=== PATIENT | female | born 1985 | race Caucasian/White ===

== ENCOUNTER → 2019-05-14 | Outpatient (CLI) | payer BC ==
[~2019-05-14] MED LIST: CEFDINIR300 MG PO; ROXICET 325 MG PO; TOBRADEX 0.1%-0.5 ML OPH; ZITHROMAX Z PA250 MG PO
[2019-05-14 10:09] LABS: HEMATOCRIT 38.9 % (37.0-47.0); HEMOGLOBIN 12.6 g/dl (12.0-16.0); MEAN CORPUSCULAR HGB 28.2 pg (27.0-31.0); MEAN CORPUSCULAR HGB CONC 32.4 g/dl (33.0-37.0); MEAN PLATELET VOLUME 9.7 fl (9.6-12.3); RED BLOOD COUNT 4.47 10*6/uL (4.10-5.10); RED CELL DISTRI WIDTH 12.3 % (0-14.5); WHITE BLOOD COUNT 8.8 10*3/uL (4.8-10.8)
[2019-05-14 10:25] LABS: ALBUMIN 3.7 gm/dl (3.1-4.5); CHLORIDE 104 mmol/L (98-107); POTASSIUM 3.7 mmol/L (3.5-5.1); SODIUM 136 mmol/L (136-145)
[2019-05-14 10:39] LABS: ALKALINE PHOSPHATASE 49 U/L (45-117); BUN 13 mg/dl (7-24); CHOLESTEROL 137 mg/dL (<200); CREATININE 0.67 mg/dL (0.55-1.02); HDL CHOLESTEROL 42 mg/dl (40-60); LDL CHOLESTEROL 86 mg/dL (9-159); SGOT/AST 10 IU/L (3-35); SGPT/ALT 20 U/L (12-78); TOTAL PROTEIN 7.5 gm/dL (6.4-8.2); TRIGLYCERIDES 43 mg/dl (<150); VLDL CHOLESTEROL 9 mg/dL (6-40)
[2019-05-16 22:04] LABS: TESTOSTERONE FREE, (DIRECT) 1.2 pg/mL (0.0-4.2)
== END | disposition home or self-care (01) ==
LOC: LAB 09:46
PROVIDERS: Family Medicine
DX: E55.9 Vitamin D deficiency, unspecified (principal); E78.00 Pure hypercholesterolemia, unspecified; R53.83 Other fatigue; R00.1 Bradycardia, unspecified; L98.8 Other specified disorders of the skin and subcutaneous tissue

== ENCOUNTER → 2019-05-30 | Outpatient (CLI) | payer BC ==
--- NOTE | ~2019-05-30 | HM ---
[place], [place] HOLTER MONITOR REPORT NAME: CHRIS ROSS UNIT #: [id number] ROOM: DOCTOR: MARY DOWD MD BIRTHDATE: [birth year] DOS: HOLTER REPORT: A 24-hour Holter. The patient remained in sinus rhythm. Minimum heart rate is 34, maximum heart rate 77, average is 47 beats per minute. Several episodes of sinus bradycardia. The slowest heart rate is 34 beats per minute. The patient had multiple episodes of premature atrial contractions present. Total of 1378 which is 2.1%. No evidence of ventricular ectopies. No significant pauses. Longest pause is 2 seconds. No symptoms noticed in the diary. FINAL IMPRESSION: Sinus rhythm with a few episodes of sinus bradycardia, frequent premature atrial contractions. No significant pauses. No significant ventricular dysrhythmia. No supraventricular dysrhythmia other than frequent PACs. MARY DOWD MD CM:HOLTER:HOLTER MONITOR REPORT [id number] MARY DOWD MD
== END | disposition home or self-care (01) ==
LOC: CARD 07:47
DX: R00.1 Bradycardia, unspecified (principal)

== ENCOUNTER → 2019-07-02 | Outpatient (CLI) | payer BC | END | disposition home or self-care (01) | LOC: US 01:43 | DX: Z34.81 Encounter for supervision of other normal pregnancy, first trimester (principal); Z3A.14 14 weeks gestation of pregnancy ==

== ENCOUNTER → 2019-08-13 | Outpatient (CLI) | payer BC | END | disposition home or self-care (01) | LOC: US 15:49 | DX: Z34.82 Encounter for supervision of other normal pregnancy, second trimester (principal); Z3A.20 20 weeks gestation of pregnancy ==

== ENCOUNTER → 2020-10-09 | Outpatient (CLI) | payer BC ==
[2020-10-09 07:48] LABS: HEMATOCRIT 38.7 % (37.0-47.0); MEAN CELL VOLUME 86.6 fl (81.0-99.0); MEAN CORPUSCULAR HGB 28.4 pg (27.0-31.0); MEAN CORPUSCULAR HGB CONC 32.8 g/dl (33.0-37.0); MEAN PLATELET VOLUME 9.5 fl (9.6-12.3); RED BLOOD COUNT 4.47 10*6/uL (4.10-5.10); RED CELL DISTRI WIDTH 11.7 % (0-14.5); WHITE BLOOD COUNT 8.4 10*3/uL (4.8-10.8)
[2020-10-09 08:26] LABS: ALBUMIN 3.3 gm/dl (3.1-4.5); BUN 15 mg/dl (7-24); CHLORIDE 109 mmol/L (98-107); CHOLESTEROL 182 mg/dL (<200); POTASSIUM 3.9 mmol/L (3.5-5.1); SODIUM 141 mmol/L (136-145)
[2020-10-09 08:28] LABS: VITAMIN D, 25-HYDROXY 25.6 ng/mL (30-100)
[2020-10-09 08:36] LABS: ALKALINE PHOSPHATASE 55 U/L (45-117); CREATININE 0.82 mg/dL (0.55-1.02); FREE T4 0.93 ng/dl (0.76-1.46); HDL CHOLESTEROL 49 mg/dl (40-60); LDL CHOLESTEROL 108 mg/dL (9-159); SGOT/AST 6 IU/L (3-35); SGPT/ALT 15 U/L (12-78); TOTAL PROTEIN 7.5 gm/dL (6.4-8.2); TRIGLYCERIDES 125 mg/dl (<150); VLDL CHOLESTEROL 25 mg/dL (6-40)
== END | disposition home or self-care (01) ==
LOC: LAB 07:24
PROVIDERS: ATTEND Family Medicine
DX: E78.00 Pure hypercholesterolemia, unspecified (principal); R53.83 Other fatigue; E55.9 Vitamin D deficiency, unspecified; R63.5 Abnormal weight gain

== ENCOUNTER → 2021-11-19 | Outpatient (CLI) | payer BC | END | disposition home or self-care (01) | LOC: RAD 06:39 | PROVIDERS: ATTEND Nurse Practitioner Family | DX: R00.1 Bradycardia, unspecified (principal); M41.84 Other forms of scoliosis, thoracic region; Z82.49 Family history of ischemic heart disease and other diseases of the circulatory system ==

== ENCOUNTER → 2021-12-30 | Outpatient (CLI) | payer BC | END | disposition home or self-care (01) | LOC: CARD 07:30 | PROVIDERS: ATTEND Nurse Practitioner Family | DX: I08.2 Rheumatic disorders of both aortic and tricuspid valves (principal); Z82.49 Family history of ischemic heart disease and other diseases of the circulatory system ==

== ENCOUNTER → 2023-06-07 | Outpatient (CLI) | payer BC | END | disposition home or self-care (01) | LOC: LAB 15:07 | PROVIDERS: ATTEND Nurse Practitioner Family | DX: J18.9 Pneumonia, unspecified organism (principal); R05.8 Other specified cough ==

== ENCOUNTER → 2023-06-18 | Outpatient (CLI) | payer BC ==
[2023-06-18 07:38] LABS: BASO # 0.1 10*3/uL (0.0-0.1); BASO % 0.5 % (0.0-1.0); EOS # 0.2 10*3/uL (0.0-0.4); EOS % 2.4 % (1.0-4.0); LYMPH # 4.5 10*3/uL (1.3-4.4); LYMPH % 44.3 % (27.0-41.0); MEAN CELL VOLUME 88.2 fl (81.0-99.0); MEAN CORPUSCULAR HGB 27.5 pg (27.0-31.0); MEAN CORPUSCULAR HGB CONC 31.2 g/dl (33.0-37.0); MEAN PLATELET VOLUME 9.2 fl (9.6-12.3); MONO # 0.7 10*3/uL (0.1-1.0); MONO % 6.9 % (3.0-9.0); NEUT # 4.6 10*3/uL (2.3-7.9); NEUT % 45.6 % (47.0-73.0); PLATELET COUNT AUTOMATED 316 10*3/uL (130-400); RED BLOOD COUNT 4.65 10*6/uL (4.10-5.10); RED CELL DISTRI WIDTH 12.9 % (0-14.5); WHITE BLOOD COUNT 10.1 10*3/uL (4.8-10.8)
[2023-06-18 07:59] LABS: ALKALINE PHOSPHATASE 58 U/L (46-116); BUN 11 mg/dl (9-23); CHLORIDE 106 mmol/L (98-107); CHOLESTEROL 179 mg/dL (<200); LDL CHOLESTEROL 111 mg/dL (9-159); POTASSIUM 4.1 mmol/L (3.4-5.1); SGPT/ALT 20 U/L (5-49); TOTAL PROTEIN 6.7 gm/dL (6.0-8.0); TRIGLYCERIDES 113 mg/dl (<150)
== END | disposition home or self-care (01) ==
LOC: LAB 07:14
PROVIDERS: ATTEND Nurse Practitioner Family
DX: Z13.220 Encounter for screening for lipoid disorders (principal); Z00.01 Encounter for general adult medical examination with abnormal findings; Z13.1 Encounter for screening for diabetes mellitus; Z83.3 Family history of diabetes mellitus